=== PATIENT | male | born 1985 | race African-American/Black ===

== ENCOUNTER 2021-02-03 09:10 | Emergency (ER) | payer SELFPAY ==
[~2021-02-03] VITALS: Ht 190.5 cm; Wt 85.0 kg
[2021-02-03 09:16] VITALS: BP 138/64
[2021-02-03] MEDS ORDERED: KETOROLAC 60MG/2ML VIAL IM STA (10:37)
[2021-02-03] MEDS ORDERED: HYDR-4001 MT (10:56)
[2021-02-03] MEDS ORDERED: AMOX-424 PO (10:56)
[2021-02-03] MEDS ORDERED: IBUP-2029 PO (10:56)
== END 2021-02-03 11:09 | disposition home or self-care (01) ==
LOC: ER 10:31
DX: K04.7 Periapical abscess without sinus (principal); K08.89 Other specified disorders of teeth and supporting structures; R68.84 Jaw pain
CPT/HCPCS: 96372; 99283; J1885